=== PATIENT | female | born 1970 | race Caucasian/White ===

== ENCOUNTER 2017-05-06 21:21 | Emergency (ER) | payer BC ==
[2017-05-06 22:51] VITALS: RESP 19; TEMP 98.1; BMI 37.4
--- NOTE | 2017-05-06 23:03 | ED PDOC ---
Arrival/HPI - General Chief Complaint: Dizziness/Lightheaded Time Seen by Provider: 05/06/17 22:59 Historian: Patient - History of Present Illness Narrative History of Present Illness (Text): 05/06/17 23:00 This 46 yo female with pmh asthma, meningitis, presents to this ED c/o dizziness , b/l ear sensation of fullness since this morning. Patient stated she feels like "room spinning". Patient denies zacarias, earache, recent trauma, recent travel , sick contact, dysarthria, dysphagia, fever, neck pain, neck stiffness or recent surgical procedure. Time/Duration: Other (see hpi) Context: Home Past Medical History - Provider Review Nursing Documentation Reviewed: Yes - Cardiac Hx Cardiac Disorders: No - Pulmonary Hx Respiratory Disorders: Yes Hx Asthma: Yes - Neurological Hx Neurological Disorder: Yes Hx Dizziness: Yes Hx Meningitis: Yes - HEENT Hx HEENT Disorder: No - Renal Hx Renal Disorder: No - Endocrine/Metabolic Hx Endocrine Disorders: No - Hematological/Oncological Hx Blood Disorders: No - Integumentary Hx Dermatological Disorder: No - Musculoskeletal/Rheumatological Hx Musculoskeletal Disorders: No - Gastrointestinal Hx Gastrointestinal Disorders: No - Genitourinary/Gynecological Hx Genitourinary Disorders: Yes Other/Comment: endometriosis - Psychiatric Hx Psychophysiologic Disorder: No Hx Substance Use: No - Surgical History Hx Section: Yes (2004) Other/Comment: laparoscopy 2007 - Anesthesia Hx Anesthesia: Yes Hx Anesthesia Reactions: Yes (itchiness) Family/Social History - Physician Review Nursing Documentation Reviewed: Yes Family/Social History: Other (noncontributory) Smoking Status: Never Smoked Hx Alcohol Use: No Hx Substance Use: No Allergies/Home Meds Allergies/Adverse Reactions: Allergies ibuprofen Adverse Reaction (Verified 05/06/17 22:57) risk of aseptic meningitis Home Medications: Home Meds Medication Instructions Recorded Confirmed l-Norgest/E.estradiol-E.estrad 1 tab PO DAILY 05/06/17 05/06/17 [Seasonique 0.15-0.03-0.01 Tab] Review of Systems - Review of Systems Constitutional: Normal. absent: Fatigue, Weight Change, Fevers Eyes: Normal ENT: Other (see hpi). absent: Sore Throat, Rhinorrhea Respiratory: Normal. absent: SOB, Cough Cardiovascular: Normal Gastrointestinal: Normal Genitourinary Female: Normal Musculoskeletal: Normal Skin: Normal Neurological: Dizziness. absent: Headache, Focal Weakness, Gait Changes, Speech Changes, Facial Droop, Disequilibrium Endocrine: Normal Hemo/Lymphatic: Normal Psychiatric: Normal Physical Exam Vital Signs Temp Pulse Resp BP Pulse Ox 05/06/17 22:43 98.1 F 88 19 123/81 98 Temperature: Afebrile Blood Pressure: Normal Pulse: Regular Respiratory Rate: Normal Appearance: Positive for: Well-Appearing, Non-Toxic, Comfortable Pain Distress: None Mental Status: Positive for: Alert and Oriented X 3 - Systems Exam Head: Present: Atraumatic, Normocephalic Pupils: Present: PERRL Extroacular Muscles: Present: EOMI Conjunctiva: Present: Normal Mouth: Present: Moist Mucous Membranes Neck: Present: Normal Range of Motion Respiratory/Chest: Present: Clear to Auscultation, Good Air Exchange. No: Respiratory Distress, Accessory Muscle Use Cardiovascular: Present: Regular Rate and Rhythm, Normal S1, S2. No: Murmurs Abdomen: Present: Normal Bowel Sounds. No: Tenderness, Distention, Peritoneal Signs Back: Present: Normal Inspection Upper Extremity: Present: Normal Inspection, Normal ROM. No: Cyanosis, Edema Lower Extremity: Present: Normal Inspection, Normal ROM. No: Edema Neurological: Present: GCS=15, CN II-XII Intact, Speech Normal, Motor Func Grossly Intact, Normal Sensory Function, Normal Cerebellar Funct, Gait Normal Skin: Present: Warm, Dry, Normal Color. No: Rashes Psychiatric: Present: Alert, Oriented x 3, Normal Insight, Normal Concentration Medical Decision Making ED Course and Treatment: 05/06/17 23:08 Patient prefers to start with PO medication for dizziness. 05/07/17 00:07 Re-evaluation. Patient feels better. Discussed results and plan with patient who expresses understanding. All questions answered and there is agreement with the plan to discharge home with instructions. Patient stable for discharge. Return if symptoms persist or worsen. Patient requested medication for acid reflux. Re-evaluation Time: 00:07 Reassessment Condition: Re-examined, Improved - Lab Interpretations Lab Results: Lab Results 05/06/17 23:10: Urine Color Yellow, Urine Appearance Clear, Urine pH 6.0, Ur Specific Fidelity 1.025, Urine Protein Negative, Urine Glucose (UA) Negative, Urine Ketones Negative, Urine Blood Trace-intact H, Urine Nitrate Negative, Urine Bilirubin Negative, Urine Urobilinogen 0.2, Ur Leukocyte Esterase Trace H , Urine RBC 0 - 2, Urine WBC 5 - 10, Ur Epithelial Cells 4 - 5, Urine Bacteria Mod, Urine HCG, Qual Negative - Medication Orders Current Medication Orders: Discontinued Medications Meclizine HCl (Antivert) 50 mg PO STAT STA Stop: 05/06/17 23:02 Last Admin: 05/06/17 23:16 Dose: 50 mg Disposition/Present on Arrival - Present on Arrival Any Indicators Present on Arrival: No History of DVT/PE: No History of Uncontrolled Diabetes: No Urinary Catheter: No History of Decub. Ulcer: No History Surgical Site Infection Following: None - Disposition Have Diagnosis and Disposition been Completed?: Yes Diagnosis: Benign paroxysmal positional vertigo, GERD (gastroesophageal reflux disease) Disposition: HOME/ ROUTINE Disposition Time: 00:09 Patient Plan: Discharge Patient Problems: Current Active Problems Problem Status Onset Benign paroxysmal positional vertigo Acute GERD (gastroesophageal reflux disease) Acute Condition: GOOD Discharge Instructions (ExitCare): Vertigo (ED), Gastroesophageal Reflux Disease (ED) Additional Instructions: Call private doctor for follow up visit in 1-2 days. Call ENT for Vertigo. Take medication as instructed. Return to emergency if symptoms worsen. or headache, fever, or nausea/vomiting. Prescriptions: Meclizine [Meclizine*] 25 mg PO Q6 PRN #30 tab PRN Reason: Dizziness Pantoprazole Sodium [Protonix] 40 mg PO DAILY #20 ect Referrals: Margo Oden, [Primary Care Provider] - Follow up with primary Dallin Unger DO [Staff Provider] - Follow up with primary Forms: [employer] (K[place]akh), WORK NOTE
[2017-05-06 23:23] LABS: URINE BILIRUBIN NEGATIVE (NEGATIVE); URINE BLOOD TRACE-INTACT (NEGATIVE); URINE GLUCOSE (UA) NEGATIVE (NEGATIVE); URINE LEUKOCYTE ESTERASE TRACE Leu/uL (NEGATIVE); URINE NITRATE NEGATIVE (NEGATIVE); URINE PROTEIN NEGATIVE mg/dL (<30 mg/dL); URINE UROBILINOGEN 0.2 E.U./dL (<1 E.U./dL)
[2017-05-06 23:24] LABS: URINE APPEARANCE CLEAR (CLEAR); URINE COLOR YELLOW (YELLOW)
[2017-05-06 23:44] LABS: URINE BACTERIA MOD (NEG); URINE RBC 0 - 2 /hpf (0-2)
[2017-05-06 23:58] LABS: HCG,QUALITATIVE URINE NEGATIVE (NEGATIVE)
[2017-05-07 00:23] VITALS: BP 122/74; PULSE 78; O2SAT 99
== END 2017-05-07 00:22 | disposition home or self-care (01) ==
LOC: ED 21:21
DX: K21.9 Gastro-esophageal reflux disease without esophagitis (principal); H81.10 Benign paroxysmal vertigo, unspecified ear